=== PATIENT | male | born 1945 | race Asian ===

== ENCOUNTER 2017-07-21 01:00 | Emergency (ER) | payer OTHER, MEDICAID ==
[~2017-07-21] VITALS: Ht 162.6 cm; Wt 77.1 kg
[2017-07-21 01:07] VITALS: Ht 162.6 cm; Wt 77.1 kg
[2017-07-21 02:48] VITALS: BP 148/90
== END 2017-07-21 02:48 | disposition home or self-care (01) ==
LOC: ED 01:00
DX: T78.40XA Allergy, unspecified, initial encounter (principal); I10 Essential (primary) hypertension; X58.XXXA Exposure to other specified factors, initial encounter
CPT/HCPCS: J1200; J2930